=== PATIENT | female | born 1985 | race Asian ===

== ENCOUNTER → 2019-07-31 | Outpatient (CLI) | payer OTHER ==
--- NOTE | 2019-07-31 14:26 | RAD ---
EXAM: Pelvic sonogram. HISTORY: IUD strings not seen. TECHNIQUE: Transabdominal and transvaginal sonographic imaging of the pelvis was performed. COMPARISON: 07/22/2017. FINDINGS: The uterus measures 9.0 x 3.9 x 4.9 cm. The endometrial stripe measures 6.5 mm in thickness. The ovaries are normal in size and demonstrate normal blood flow. There is a dominant right ovarian follicle/follicular cyst measuring 1.5 cm. The cervix is slightly heterogeneous. No mass is seen. There is trace fluid within the endocervical canal. An intrauterine contraceptive device is not seen. There is no pelvic free fluid. IMPRESSION: 1. No identifiable IUD within the endometrial cavity. 2. Slightly heterogeneous cervix and trace fluid within the endocervical canal. No focal lesion is seen. Electronically signed by: Kelly Payton MD (07/31/2019 2:23 PM) [id number]
== END | disposition home or self-care (01) ==
LOC: US 13:09
PROVIDERS: ATTEND Obstetrics & Gynecology
DX: Z30.9 Encounter for contraceptive management, unspecified (principal)
CPT/HCPCS: 76830; 76856

== ENCOUNTER → 2019-08-07 | Outpatient (CLI) | payer OTHER ==
--- NOTE | 2019-08-07 16:11 | RAD ---
Supine abdomen. HISTORY: Contraception, Z 30.9, possible intra-abdominal IUD Supine view was taken of the abdomen. There are clips from previous tubal ligation. An intrauterine contraceptive device is not identified. There is no other opaque foreign body in the abdomen or pelvis. Bowel pattern is normal. There is mild stool in the colon. There are no abnormal calcifications. IMPRESSION: 1. Surgical clips in the pelvis suggesting previous tubal ligation. 2. No other opaque foreign body noted, an IUD is not identified. 3. No other acute finding in the abdomen. Electronically signed by: Pal Everett MD (08/07/2019 4:08 PM) [id number]
== END | disposition home or self-care (01) ==
LOC: RAD 15:29
PROVIDERS: ATTEND Obstetrics & Gynecology
DX: Z30.9 Encounter for contraceptive management, unspecified (principal)
CPT/HCPCS: 74018